=== PATIENT | female | born 1995 ===

== ENCOUNTER 2016-12-26 12:04 | Emergency (ER) | payer MEDICAID, OTHER ==
[2016-12-26 12:04] VITALS: BMI 28.3
[2016-12-26 12:18] VITALS: TEMP 97.9; O2SAT 99
[2016-12-26 13:04] LABS: RBC URINE 6 /hpf (0-3); URINE BACTERIA RARE (<OCC); URINE BILIRUBIN NEGATIVE (NEGATIVE); URINE BLOOD NEGATIVE (NEGATIVE); URINE COLOR Yellow (YELLOW); URINE GLUCOSE (UA) NORMAL (Normal); URINE KETONE NEGATIVE (NEGATIVE); URINE LEUKOCYTE ESTERASE 3+ Leu/uL (Negative); URINE PROTEIN NEGATIVE (NEGATIVE); URINE UROBILINOGEN NORMAL mg/dL (0.2-1.0); WBC URINE 63 /hpf (0-5)
[2016-12-26] MEDS ORDERED: cefTRIAXone (Rocephin) 250 mg Inj IM STA (13:15)
[2016-12-26 13:48] VITALS: BP 104/71; PULSE 65; RESP 18
--- NOTE | 2016-12-26 14:03 | C.PDOC ---
History Of Present Illness 21 y/o female c/o left intermittent left lower quadrant pain x 1 day with vaginal discharge. denies dysuria and frequency. no back pain. fever or chills. pt had unprotected sex several days ago. no hx sti per pt, normal pap more than a year ago. Time Seen by Provider: 12/26/16 12:16 Chief Complaint (Nursing): Female Genitourinary History Per: Patient History/Exam Limitations: no limitations Onset/Duration Of Symptoms: Intermittent Episodes Current Symptoms Are (Timing): Still Present Quality Of Discomfort: "Pain" Associated Symptoms: denies: Fever, Chills, Back Pain, Urinary Symptoms (dysuria , frequency) Additional History Per: Patient Past Medical History Reviewed: Historical Data, Nursing Documentation, Vital Signs Vital Signs: Last Vital Signs Temp 97.9 F 12/26/16 13:45 Pulse 65 12/26/16 13:45 Resp 18 12/26/16 13:45 BP 104/71 12/26/16 13:45 Pulse Ox 99 12/27/16 15:37 - Medical History PMH: No Chronic Diseases Surgical History: No Surg Hx Family History: States: Unknown Family Hx - Social History Hx Alcohol Use: No Hx Substance Use: No - Immunization History Hx Tetanus Toxoid Vaccination: No Hx Influenza Vaccination: No Hx Pneumococcal Vaccination: No Review Of Systems Constitutional: Negative for: Fever, Chills Gastrointestinal: Positive for: Abdominal Pain (LLQ) Genitourinary: Positive for: Vaginal Discharge. Negative for: Dysuria, Frequency Musculoskeletal: Negative for: Back Pain Physical Exam - Physical Exam Appears: Non-toxic, No Acute Distress Skin: Normal Color, Warm, Dry Oral Mucosa: Moist Cardiovascular: Rhythm Regular, No Murmur Respiratory: Normal Breath Sounds, No Wheezing Gastrointestinal/Abdominal: Bowel Sounds (normal ), Soft, No Tenderness, No Distention, No Guarding, No Rebound Back: No CVA Tenderness Pelvic: Vaginal Discharge (moderate amount of yellow discharge in cervical os and vaginal vault ), Cervical Motion Tenderness (mild), No Cervix Open, No Adnexal Tenderness Neurological/Psych: Oriented x3, Normal Speech, Normal Cognition ED Course And Treatment O2 Sat by Pulse Oximetry: 99 (on RA) Pulse Ox Interpretation: Normal Medical Decision Making Medical Decision Making: Progress: Labs ordered and reviewed. Rocephin IM and Zithromax PO administered. pt with vaginal discharge s/p unprotected sex, is being treated for sti. pt advised to f/u Dr Ellsworth for annual pap smear and exam, also given info for sti clinic. pt has +3 le and 63 wbc, has copious discharge on exam; pt without any urinary symptoms. pt not treated for uti. Disposition Counseled Patient/Family Regarding: Studies Performed, Diagnosis, Need For Followup - Disposition Referrals: Cipriano Ellsworth MD [Staff Provider] - [facility] [Outside] Disposition: HOME/ ROUTINE Disposition Time: 14:06 Condition: STABLE Additional Instructions: Please have sex protected sex at all times, recommend condom use. Also advised to follow up with Dr Ellsworth or [facility] for annual pap smear and follow up exam ; may go to STD clinic as well for any further testing. Instructions: Cervicitis (ED), Safe Sex (ED) Forms: [facility] (Chinese), General Discharge Instructions - Clinical Impression Clinical Impression: Cervicitis - PA / PLACEMENT SPECIALIST / Resident Statement MD/DO has reviewed & agrees with the documentation as recorded. - Scribe Statement The provider has reviewed the documentation as recorded by the Scribe (Ninoska Mccord) All medical record entries made by the Scribe were at my direction and personally dictated by me. I have reviewed the chart and agree that the record accurately reflects my personal performance of the history, physical exam, medical decision making, and the department course for this patient. I have also personally directed, reviewed, and agree with the discharge instructions and disposition.
== END 2016-12-26 14:13 | disposition home or self-care (01) ==
LOC: C.ER 12:04
DX: N72 Inflammatory disease of cervix uteri (principal)
CPT/HCPCS: 81001; 87070; 87491; 87591; 96372; 99284; J0696

== ENCOUNTER 2017-01-14 11:56 | Emergency (ER) | payer MEDICAID ==
[2017-01-14 11:56] VITALS: BMI 28.3
[2017-01-14 12:17] VITALS: RESP 18; TEMP 97.9
[2017-01-14] MEDS ORDERED: cefTRIAXone (Rocephin) 250 mg Inj IM STA (12:34)
--- NOTE | 2017-01-14 12:34 | C.PDOC ---
History Of Present Illness 21 yr old female presents to the ER stating had unprotected sex 1 week ago and now has vaginal itch and foul smelling odor for the past 2 days. Patient is concerned about possible GC exposure and is requesting treatment. Patient denies fever, chills, nausea, vomiting, abdominal pain, dysuria, weakness or numbness. Patient requesting history eval in presence of friend who is also a patient in ER for similar complaints. Time Seen by Provider: 01/14/17 12:27 Chief Complaint (Nursing): Female Genitourinary History Per: Patient History/Exam Limitations: no limitations Onset/Duration Of Symptoms: Days (2 days) Past Medical History Reviewed: Historical Data, Nursing Documentation, Vital Signs Vital Signs: Last Vital Signs Temp 97.9 F 01/14/17 12:14 Pulse 71 01/14/17 13:21 Resp 18 01/14/17 13:21 BP 110/69 01/14/17 13:21 Pulse Ox 100 01/18/17 08:16 Family History: States: No Known Family Hx - Social History Hx Alcohol Use: No Hx Substance Use: No - Immunization History Hx Tetanus Toxoid Vaccination: No Hx Influenza Vaccination: No Hx Pneumococcal Vaccination: No Review Of Systems Except As Marked, All Systems Reviewed And Found Negative. Constitutional: Negative for: Fever, Chills Gastrointestinal: Negative for: Nausea, Vomiting, Abdominal Pain Genitourinary: Positive for: Other ((+) Vaginal itch and foul smelling odor.). Negative for: Dysuria Neurological: Negative for: Weakness, Numbness Physical Exam - Physical Exam Appears: Non-toxic, No Acute Distress Skin: Warm, Dry Head: Atraumatic, Normacephalic Oral Mucosa: Moist Respiratory: Normal Breath Sounds, No Rales, No Rhonchi, No Stridor, No Wheezing Gastrointestinal/Abdominal: Normal Exam, Soft, No Tenderness, No Guarding, No Rebound Pelvic: No Vaginal Bleeding, Vaginal Discharge (Clear vaginal discharge), No Cervical Motion Tenderness Neurological/Psych: Oriented x3, Normal Speech, Normal Motor ED Course And Treatment O2 Sat by Pulse Oximetry: 100 (RA) Pulse Ox Interpretation: Normal Medical Decision Making Medical Decision Making: PLAN: * Zithromax PO * Rocephin IM NOTE: * Patient is only requesting treatment for gonorrhea and chlamydia, no testing. * Patient advised to follow up with STD clinic for HIV testing and further STD testing and treatments. Disposition - Disposition Referrals: [facility] [Outside] [facility] [Outside] Disposition: HOME/ ROUTINE Disposition Time: 13:15 Condition: GOOD Prescriptions: Metronidazole [Flagyl] 500 mg PO BID #14 tab Instructions: Bacterial Vaginosis (ED), Sexually Transmitted Diseases (ED) Forms: [employer] (Wolof) - Clinical Impression Clinical Impression: Concern about STD in female without diagnosis, Vaginitis - Scribe Statement The provider has reviewed the documentation as recorded by the Paulie Bryant Provider Attestation: All medical record entries made by the Paulie were at my direction and personally dictated by me. I have reviewed the chart and agree that the record accurately reflects my personal performance of the history, physical exam, medical decision making, and the department course for this patient. I have also personally directed, reviewed, and agree with the discharge instructions and disposition.
[2017-01-14 13:58] VITALS: BP 110/69; PULSE 71
[2017-01-18 08:16] VITALS: O2SAT 100
== END 2017-01-14 13:22 | disposition home or self-care (01) ==
LOC: C.ER 11:56
DX: N76.0 Acute vaginitis (principal)